=== PATIENT | male | born 1980 | race Caucasian/White ===

== ENCOUNTER 2024-06-30 07:38 | Emergency (ER) | payer OTHER ==
[2024-06-30] MEDS ORDERED: Ketorolac Tromethamine 30 MG (1 mL) VIAL ONE (08:20)
== END 2024-06-30 09:05 | disposition home or self-care (01) ==
LOC: MADERS 07:38
DX: M79.641 Pain in right hand (principal); Z55.6 Problems related to health literacy; Z91.85 Personal history of military service
CPT/HCPCS: 96372; 99283; J1885